=== PATIENT | female | born 1985 | race Caucasian/White ===

== ENCOUNTER 2018-08-07 00:40 | Inpatient (IN) ==
[2018-08-07] MEDS ORDERED: PENICILLIN G POTASSIUM 6 MU in DEXTROSE 5% 250 ML IV STA (01:24)
[2018-08-07] MEDS ORDERED: OXYTOCIN 30 UNITS/500 ML BAG IV PRN ×3 (01:24→12:08)
[2018-08-07] MEDS ORDERED: BUTORPHANOL TARTRATE 2 MG/ML VIAL IV ONE (01:27)
--- NOTE | 2018-08-07 01:36 | History & Physical Report ---
Date of Service August 07, 2018 Assessment & Plan (1) Amniotic fluid leaking: (2) Spontaneous rupture of amniotic membranes: 33 yo at 39.2 wks with SROM in early labor GBS+ FHR reassuring Borderline elevated BP, most likely with ctxs/ pain Plan to admit, monitor, labs, Stadol for pain now and then epidural Anticipate (3) GBS (group B Streptococcus carrier), +RV culture, currently : History of Present Illness Chief Complaint: Leaking Primary Care Provider: NO PCP Patient is a 33 yo at 39.2 wks who woke up at 11 pm last night with leaking of fluids She had a gush and then has been leaking clear fluids since then She started to have ctxs on the way here No VB +FM No fever/ chills/ CP/ SOB/ BYRD/ Change in vision Her has been uncomplicated except 1) GBS+ 2) h/o Juvenile RA, on remission 3) h/o labial HSV, genital?, on Valtrex and no symptoms Allergies Allergy/AdvReac Type Severity Reaction Status Date / Time naproxen Allergy Intermediate Unknown Verified 08/07/18 01:34 sulfasalazine Allergy Intermediate Unknown Verified 08/07/18 01:34 sulindac Allergy Intermediate Unknown Verified 08/07/18 01:35 Patient History Medical History Juvenile rheumatoid arthritis Social History Communication Ability: Effective marital status: Current Living Situation: Spouse current occupational status: employed Feels Safe at Home: No Smoking Status: Never smoker Hx Alcohol Use: No 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/ GC See HPI Review of Systems All systems reviewed & are unremarkable except as noted in HPI & below as per Subjective / HPI Physical Exam Constitutional: WD/WN, vitals as above well developed, well nourished and + in distress (with contractions only) Gastrointestinal (Abdomen): Abd: soft, NT, Gravid Genitourinary: no vaginal lesions, no adnexal mass normal external appearance VE; grossly leaking, Amnisure and Nitrazine+/+ Cervix: 2/ 80%/ -2, vertex, central Results & Data Vital Signs (Past 12 Hours) Vital Signs Pulse BP 08/07/18 01:25 104 H 169/105 H 08/07/18 01:24 109 H 185/100 H 08/07/18 01:19 93 H 148/97 H 08/07/18 01:15 100 H 141/88 H 08/07/18 01:09 96 H 141/92 H 08/07/18 01:05 96 H 139/91 08/07/18 00:58 88 142/99 H Monitoring External Monitor Categ I Tocodynamometer Ctxs q 2-5 min
[2018-08-07] MEDS: LACTATED RINGER'S 1,000 ML IV PRN ×2 (01:42→10:17)
[2018-08-07] MEDS ORDERED: fentaNYL citrate 100 MCG/2 ML VIAL ONE (01:56)
[2018-08-07] MEDS ORDERED: BUPIVACAINE 0.25% 30 ML VIAL ONE (01:56)
[2018-08-07] MEDS ORDERED: ePHEDrine sulfate 50 MG/ML AMP ONE (01:56)
[2018-08-07] MEDS ORDERED: fentaNYL 2MCG/ML ROPIV 1.25MG/ML 100 ML BAG EPI ONE (01:57)
[2018-08-07 02:00] LABS: Hematocrit (blood only) 35.9 % (37-47); Hemoglobin 12.1 g/dL (12.0-16.0); Mean Corpuscular Volume 86.3 fL (80-100); Mean Platelet Volume 9.6 fL (7.4-10.4); Platelet Count 326 K/uL (130-400); RDW Coefficient of Variation 13.7 % (11.5-14.5); RDW Standard Deviation 42.4 fL (36.4-46.3); Red Blood Count 4.16 M/uL (4.2-5.4); White Blood Count 9.93 K/uL (4.8-10.8)
[2018-08-07 02:01] LABS: Mean Corpuscular Hgb Conc 33.7 g/dL (32-36)
[2018-08-07] MEDS ORDERED: NALBUPHINE HCL INJ 10 MG/ML AMP IV PRN (02:08)
[2018-08-07] MEDS ORDERED: NALOXONE HCL 0.4 MG/1 ML VIAL/CARP IV PRN (02:08)
[2018-08-07] MEDS ORDERED: NALOXONE HCL 1 MG in SODIUM CHLORIDE 0.9% 1000ML 1,000 ML IV PRN (02:08)
[2018-08-07] MEDS ORDERED: fentaNYL 2MCG/ML ROPIV 1.25MG/ML 100 ML BAG EPI PRN (02:08)
[2018-08-07] MEDS ORDERED: ONDANSETRON INJ 2 MG/ML 2 ML VIAL IV PRN (02:08)
[2018-08-07] MEDS ORDERED: DiphenhydrAMINE HCL 50 MG/ML VIAL IV PRN (02:08)
[2018-08-07] MEDS ORDERED: ePHEDrine sulfate 50 MG/ML AMP IV PRN (02:08)
--- NOTE | 2018-08-07 02:14 | Anesthesiology Consultation ---
Date of Service August 07, 2018 Assessment & Plan (1) Encounter for pre-operative examination: Chart Review Chart Review: Patient NOT seen in Pre Admission Testing and Acceptable Risk for Labor Epidural Consults Requested none History Height/Weight Height: 5 ft 7 in Weight: 104.326 kg Allergies Allergy/AdvReac Type Severity Reaction Status Date / Time naproxen Allergy Intermediate Unknown Verified 08/07/18 01:34 sulfasalazine Allergy Intermediate Unknown Verified 08/07/18 01:34 sulindac Allergy Intermediate Unknown Verified 08/07/18 01:35 Medications Home Medications Medication Instructions Recorded Confirmed Last Taken PNV cmb#95-ferrous fumarate-FA 1 tab PO DAILY 08/07/18 08/07/18 07/30/18 [] cetirizine [Zyrtec] 10 mg PO DAILY 08/07/18 08/07/18 08/06/18 valacyclovir 500 mg PO DAILY 08/07/18 08/07/18 08/06/18 Active Medications Generic Name Dose Route Start Last Admin Trade Name Freq PRN Reason Stop Dose Admin Lactated Ringer's 1,000 mls @ 150 mls/hr 08/07/18 01:24 08/07/18 01:42 Lr IV 08/09/18 01:23 150 mls/hr .Q6H40M PRN Administration L&D Protocol Protocol Past Medical History Medical History Juvenile rheumatoid arthritis Exercise / Class Metabolic Activity II 4-5 Yardwork/Stairs/Walk up hill Past Surgical History wisdom teeth removal Past Anesthesia History No Hx of Anesthesia Complications and No Family Hx of Anesthesia Complications History of PONV No Hx of PONV and No Hx of Motion Sickness Social History Smoking Status: Never smoker Hx Alcohol Use: No Hx Substance Use: No Physical Exam Vital Signs Last Vital Signs Temp 36.8 C 08/07/18 00:56 Pulse 104 H 08/07/18 01:25 Resp 18 08/07/18 00:56 BP 169/105 H 08/07/18 01:25 Testing Laboratory Results 08/07/18 01:34 08/07/18 01:34
[2018-08-07 02:18] LABS: Albumin Level 2.5 gm/dl (3.4-5.0); BUN Creatinine Ratio 18.2 (10-20); Calcium 8.6 mg/dl (8.5-10.1); Creatinine Clr Calc Pharmacy 137.4 ml/min; Est GFR (African American) 126.3
[2018-08-07 02:20] LABS: Albumin Globulin Ratio 0.6 (0.9-2); Bilirubin,Total 0.1 mg/dl (0.2-1); Globulin 4.1 gm/dl (2.5-4.0); Total Protein 6.6 gm/dl (6.4-8.2)
[2018-08-07] MEDS: PENICILLIN G POTASSIUM 3 MU in DEXTROSE 5% 100 ML IV PRN ×2 (05:34→10:27)
[2018-08-07] MEDS ORDERED: ACETAMINOPHEN 325 MG TAB PO PRN (12:08)
[2018-08-07] MEDS ORDERED: BENZOCAINE 20% AER SPR 82.5 GM CAN EXT PRN (12:08)
[2018-08-07] MEDS ORDERED: SUPERCREAM 0.870% 15 GM JAR EXT PRN (12:08)
[2018-08-07] MEDS ORDERED: HYDROCORTISONE ACETATE 25 MG SUPP PR PRN (12:08)
[2018-08-07] MEDS ORDERED: MEASLES, MUMPS & RUBELLA VIRUS VIAL SQ ONE (12:08)
[2018-08-07] MEDS ORDERED: DIPHTHERIA/TETANUS/PERTUSSIS 0.5 ML SYR/VIAL IM ONE (12:08)
[2018-08-07] MEDS ORDERED: BISACODYL 10 MG SUPP PR PRN (12:08)
--- NOTE | 2018-08-07 12:15 | Procedure Note ---
Vaginal Delivery Summary Date of Service August 07, 2018 Vaginal Delivery Summary Delivery Note live female over intact perineum ROWDY with thick meconium at delivery with Apgars 6/8 weight pending. Cord blood obtained followed by cord blood collection and spontaneous delivery of intact placenta. Small perineal tear repaired with one 3/0 Vicryl suture. EBL 250 ml. Final sponge needle and instrument count are correct. Placenta for exam. Mom stable and baby to nursery for observation.
--- NOTE | 2018-08-07 12:41 | Anesthesia Procedure Note ---
Date of Service August 07, 2018 Anesthesia Post Epidural Note Vital Signs Vital Signs: Temp Pulse Resp BP Pulse Ox 37.1 C 95 H 20 143/83 H 96 08/07/18 10:57 08/07/18 12:36 08/07/18 12:06 08/07/18 12:36 08/07/18 11:40 Pain Intensity Abdomen: Pain Intensity: 0 Notes Mental Status: alert / awake / arousable and participated in evaluation Nausea / Vomiting: adequately controlled Pain: adequately controlled Airway Patency, RR, SpO2: stable & adequate BP & HR: stable & adequate Hydration State: stable & adequate Neuraxial Anesthesia: was administered and sensory block is resolving Anesthetic Complications: no major complications apparent and Pt Satisfied with anesthetic care Epidural: Removed without complications and With tip intact
[2018-08-07] MEDS: IBUPROFEN 600 MG TAB PO PRN ×3 (15:01→23:46)
[2018-08-07] MEDS: DOCUSATE SODIUM 100 MG CAP PO SCH (20:30)
[2018-08-08] MEDS: IBUPROFEN 600 MG TAB PO PRN ×4 (05:10→21:15)
[2018-08-08 07:18] LABS: Hematocrit (blood only) 30.7 % (37-47); Hemoglobin 10.2 g/dL (12.0-16.0); Mean Corpuscular Hgb Conc 33.2 g/dL (32-36); Mean Corpuscular Volume 86.5 fL (80-100); Mean Platelet Volume 8.8 fL (7.4-10.4); Platelet Count 243 K/uL (130-400); Red Blood Count 3.55 M/uL (4.2-5.4); White Blood Count 10.82 K/uL (4.8-10.8)
[2018-08-08] MEDS: DOCUSATE SODIUM 100 MG CAP PO SCH ×2 (08:59→21:15)
[2018-08-08] MEDS: FERROUS SULFATE 325 MG TAB PO SCH (08:59)
[2018-08-08] MEDS: PRENATAL VITAMIN 1 TAB PO SCH (08:59)
[2018-08-08] MEDS ORDERED: NON-FORMULARY MEDICATION (Pnv Cmb#95-Ferrous Fumarate-Fa [Prenatal] 1 TAB) PO SCH (09:00)
[2018-08-08] MEDS ORDERED: CETIRIZINE HCL 10 MG TABLET PO SCH (09:00)
--- NOTE | 2018-08-08 11:27 | Obstetrical Progress Note ---
Date of Service August 08, 2018 Assessment & Plan (1) normal course: PPD#1 Pt doing well anticipate disch tomorrow Subjective Ambulation: ambulating normally Voiding: no voiding problems Passing Gas:: Yes Diet Tolerance:: regular diet Lochia:: Small Feeding Type:: breast feeding Review of Systems All systems reviewed & are unremarkable except as noted in HPI & below Physical Exam Constitutional WD/WN, vitals as above well developed and well nourished Eyes PERRL, conjunctivae normal, anicteric sclerae Neck trachea midline, no thyromegaly Respiratory normal respiratory effort, lungs clear to auscultation Auscultation: no crackles, no rales and no wheezes Cardiovascular RRR, no murmur, no edema Gastrointestinal (Abdomen) normal bowel sounds, soft, nontender, no hepatosplenomegaly Uterus is below umbilicus Musculoskeletal no cyanosis or clubbing, extremities motor strength 5/5 Skin no rashes, warm and dry Neurologic patellar DTR's 2+ bilat, sensation intact Psychiatric A+Ox3, euthymic affect Genitourinary normal external appearance Results & Data Vital Signs (Past 12 Hours) Vital Signs Temp Pulse Resp BP Pulse Ox 08/08/18 07:15 36.6 C 85 18 110/68 08/08/18 05:00 36.6 C 78 20 110/68 97 08/08/18 00:00 36.6 C 72 20 120/80 97
[2018-08-08] MEDS ORDERED: BISACODYL 5 MG TABEC PO SCH (20:00)
[2018-08-09] MEDS: IBUPROFEN 600 MG TAB PO PRN (01:23)
[2018-08-09 06:45] LABS: Hematocrit (blood only) 31.1 % (37-47); Hemoglobin 10.3 g/dL (12.0-16.0)
--- NOTE | 2018-08-09 09:06 | Obstetrical Progress Note ---
Date of Service August 09, 2018 Subjective doing well tolerating diet ambulating well Physical Exam Constitutional: WD/WN, vitals as above comfortable abdomen soft non- tender neg edema neg Kristen's for d/c home Results & Data Vital Signs (Past 12 Hours) Vital Signs Temp Pulse Resp BP 08/09/18 00:00 36.6 C 97 H 18 129/81 Laboratory Results Laboratory Results - last 48 hr 08/08/18 08/09/18 07:07 06:23 WBC 10.82 H RBC 3.55 L Hgb 10.2 L 10.3 L Hct 30.7 L 31.1 L MCV 86.5 MCH 28.7 MCHC 33.2 RDW Std Deviation 44.0 RDW Coeff of Micheline 14.0 Plt Count 243 MPV 8.8
[2018-08-09] MEDS: DOCUSATE SODIUM 100 MG CAP PO SCH (09:13)
[2018-08-09] MEDS: FERROUS SULFATE 325 MG TAB PO SCH (09:13)
[2018-08-09] MEDS: PRENATAL VITAMIN 1 TAB PO SCH (09:13)
== END 2018-08-09 15:15 | disposition home or self-care (01) | DRG 807 ==
LOC: OPB 00:40 → 4S1 00:42 → 4S2 14:40

== ENCOUNTER 2020-01-09 07:11 | Inpatient (IN) ==
[2020-01-09] MEDS ORDERED: OXYTOCIN 30 UNITS/500 ML BAG IV PRN ×3 (07:56→15:17)
--- NOTE | 2020-01-09 08:37 | Progress Note ---
Date of Service January 09, 2020 Assessment & Plan Admission and Anticipated Discharge Date Admission Date: January 09, 2020 Subjective Met Pt and spouse Reviewed PNC with pt Induction for post dates FHR; CAT1 Ctx minimal VE 350/-2 + GBS Plan start Pitocin Antibx for GBS ordered Results & Data ([facility]) Vital Signs (Past 12 Hours) Vital Signs Temp Pulse Resp BP 01/09/20 07:32 37.2 C 97 H 16 141/79 H 01/09/20 07:23 37.2 C 97 H 16 141/79 H
[2020-01-09] MEDS ORDERED: PENICILLIN G POTASSIUM 3 MU in DEXTROSE 5% 100 ML IV PRN (08:40)
[2020-01-09] MEDS ORDERED: PENICILLIN G POTASSIUM 6 MU in DEXTROSE 5% 250 ML IV STA (08:40)
[2020-01-09] MEDS: LACTATED RINGER'S 1,000 ML IV PRN ×2 (09:11→13:13)
[2020-01-09 09:22] LABS: Alanine Aminotransferase 12 U/L (12-78); Albumin Level 2.5 gm/dl (3.4-5.0); Aspartate Aminotransferase 12 U/L (15-37); BUN Creatinine Ratio 20.9 (10-20); Blood Urea Nitrogen 14 mg/dl (7-18); Calcium 8.8 mg/dl (8.5-10.1); Carbon Dioxide 23 mmol/L (21-32); Chloride 108 mmol/L (98-107); Creatinine Clr Calc Pharmacy 145.4 ml/min; Est GFR (African American) 132.6; Est GFR (Non-African American) 114.4; Glucose 70 mg/dl (70-99); Potassium 4.2 mmol/L (3.5-5.1); Sodium 137 mmol/L (136-145)
[2020-01-09 09:26] LABS: Albumin Globulin Ratio 0.6 (0.9-2); Alkaline Phosphatase 118 U/L (45-117); Bilirubin,Total < 0.1 mg/dl (0.2-1); Globulin 4.4 gm/dl (2.5-4.0); Total Protein 6.9 gm/dl (6.4-8.2)
[2020-01-09] MEDS ORDERED: ACETAMINOPHEN 325 MG TAB PO PRN ×2 (10:40→15:17)
[2020-01-09] MEDS ORDERED: ACETAMINOPHEN 325 MG TAB ONE (10:50)
--- NOTE | 2020-01-09 12:46 | Progress Note ---
Date of Service January 09, 2020 Assessment & Plan Admission and Anticipated Discharge Date Admission Date: January 09, 2020 Subjective pt doing well On Pitocin Ctx 1-3min SROM- clear VE /-2 pt requesting epidural analgesia Results & Data ([facility]) Vital Signs (Past 12 Hours) Vital Signs Temp Pulse Resp BP 01/09/20 12:14 80 138/91 01/09/20 11:12 86 134/90 01/09/20 11:02 36.7 C 18 01/09/20 10:12 88 138/90 01/09/20 09:41 87 145/84 H 01/09/20 09:14 91 H 137/102 H 01/09/20 09:13 84 132/88 01/09/20 07:32 37.2 C 97 H 16 141/79 H 01/09/20 07:23 37.2 C 97 H 16 141/79 H
[2020-01-09] MEDS ORDERED: SODIUM CHLORIDE 0.9% INJ 10 ML VIAL ONE (12:50)
[2020-01-09] MEDS ORDERED: ePHEDrine sulfate 50 MG/ML AMP ONE (12:50)
[2020-01-09] MEDS ORDERED: fentaNYL citrate 100 MCG/2 ML VIAL ONE (12:50)
[2020-01-09] MEDS ORDERED: BUPIVACAINE 0.25% 30 ML VIAL ONE (12:50)
[2020-01-09] MEDS ORDERED: fentaNYL 2MCG/ML ROPIVACAINE 1.25MG/ML 100 ML BAG EPI ONE (12:51)
[2020-01-09] MEDS ORDERED: diphenhydrAMINE 50 MG/ML VIAL IV PRN (13:16)
[2020-01-09] MEDS ORDERED: PROMETHAZINE HCL 25 MG in SODIUM CHLORIDE 0.9% 50 ML IV PRN (13:16)
[2020-01-09] MEDS ORDERED: ePHEDrine sulfate 50 MG/ML AMP IV PRN (13:16)
[2020-01-09] MEDS ORDERED: NALOXONE HCL 1 MG in SODIUM CHLORIDE 0.9% 1000ML 1,000 ML IV PRN (13:16)
[2020-01-09] MEDS ORDERED: NALOXONE HCL 0.4 MG/1 ML VIAL/CARP IV PRN (13:16)
[2020-01-09] MEDS ORDERED: ONDANSETRON INJ 2 MG/ML 2 ML VIAL IV PRN (13:16)
[2020-01-09] MEDS ORDERED: fentaNYL 2MCG/ML ROPIVACAINE 1.25MG/ML 100 ML BAG EPI PRN (13:16)
--- NOTE | 2020-01-09 13:16 | Anesthesiology Consultation ---
Date of Service January 09, 2020 Assessment & Plan ASA ASA3 Proposed Anesthesia Anesthesia Type: Labor Epidural Risk / Benefits Reviewed With: PT / POA / Parent / Guardian, Accepts Plan and Informed Consent Obtained History Height/Weight Height: 5 ft 7 in Weight: 106.141 kg Allergies Allergy/AdvReac Type Severity Reaction Status Date / Time naproxen Allergy Intermediate Unknown Verified 01/09/20 07:36 sulfasalazine Allergy Intermediate Unknown Verified 01/09/20 07:36 sulindac Allergy Intermediate Unknown Verified 01/09/20 07:36 Medications Home Medications Medication Instructions Recorded Confirmed Last Taken PNV cmb#95-ferrous fumarate-FA 1 tab PO DAILY 08/07/18 01/09/20 01/08/20 21:00 [] Active Medications Generic Name Dose Route Start Last Admin Trade Name Freq PRN Reason Stop Dose Admin Lactated Ringer's 1,000 mls @ 125 mls/hr 01/09/20 07:56 01/09/20 13:13 Lr IV 01/11/20 07:55 125 mls/hr .Q8H PRN Administration L&D Protocol Protocol Oxytocin 30 units in 500 mls @ 8 mls/hr 01/09/20 08:40 01/09/20 11:45 Pitocin IV 01/11/20 08:39 0.48 units/hr .Q24H PRN 8 mls/hr Labor Induction/Augmentation Titration Protocol 0.48 UNITS/HR Penicillin G Potassium 3 mu/ 106 mls @ 100 mls/hr 01/09/20 08:40 01/09/20 13:03 Dextrose IV 01/19/20 08:39 100 mls/hr Q4H PRN Administration Give until delivery Past Medical History Medical History (Updated 01/09/20 @ 07:34 by Isabel Jaimes, VLADIMIR) Anxiety no meds IBS (irritable bowel syndrome) No meds Juvenile rheumatoid arthritis no meds Exercise / Class Metabolic Activity II 4-5 Yardwork/Stairs/Walk up hill Past Family History Family History Grandmother (Paternal) Breast cancer Grandfather (Maternal) Throat cancer Grandmother (Maternal) Heart disease Past Surgical History Surgical History H/O wisdom tooth extraction as a teenager Past Anesthesia History No Hx of Anesthesia Complications and No Family Hx of Anesthesia Complications History of PONV No Hx of PONV and No Hx of Motion Sickness Social History Smoking Status: Never smoker Hx Alcohol Use: No Hx Substance Use: No substance use type: does not use Review of Systems denies fever/cough/ colds/ chest pain/ SOB/ DARÍO denies DARÍO Physical Exam Vital Signs Last Vital Signs Temp 36.7 C 01/09/20 13:05 Pulse 70 01/09/20 14:25 Resp 18 01/09/20 14:00 BP 109/62 01/09/20 14:22 Pulse Ox 100 01/09/20 14:25 ENMT Mouth: no TMJ abnormality and no dentition abnormality Thyromental Distance: > or= 3.5 Finger Breadths Mallampati Class: II Neck neck extension not limited Respiratory normal respiratory effort; no respiratory distress Auscultation: lungs clear to auscultation bilaterally Cardiovascular Rate/Rhythm: regular rate and regular rhythm Neurologic moves all extremities Psychiatric Orientation: alert and oriented x 3 Testing Laboratory Results 01/09/20 08:08 01/09/20 08:50
[2020-01-09 13:28] LABS: Hemoglobin 12.4 g/dL (12.0-16.0); Mean Corpuscular Hemoglobin 28.8 pg (25-34); Mean Corpuscular Volume 88.4 fL (80-100); Mean Platelet Volume 9.5 fL (7.4-10.4); Platelet Count 332 K/uL (130-400); RDW Coefficient of Variation 13.8 % (11.5-14.5); RDW Standard Deviation 44.6 fL (36.4-46.3); White Blood Count 9.48 K/uL (4.8-10.8)
[2020-01-09 13:41] LABS: Mean Corpuscular Hgb Conc 32.6 g/dL (32-36)
[2020-01-09] MEDS ORDERED: miSOPROStoL 200 MCG TAB ONE (15:02)
[2020-01-09] MEDS ORDERED: LIDOCAINE HCL 1% 20 ML VIAL ONE (15:02)
[2020-01-09] MEDS ORDERED: METHYLERGONOVINE MALEATE 0.2 MG/ML AMP ONE (15:03)
[2020-01-09] MEDS ORDERED: BENZOCAINE 20% AER SPR 82.5 GM CAN EXT PRN (15:17)
[2020-01-09] MEDS ORDERED: HYDROCORTISONE ACETATE 25 MG SUPP PR PRN (15:17)
[2020-01-09] MEDS ORDERED: METHYLERGONOVINE MALEATE 0.2 MG/ML AMP IM ONE (15:17)
[2020-01-09] MEDS ORDERED: bisacodyL 10 MG SUPP PR PRN (15:17)
[2020-01-09] MEDS ORDERED: miSOPROStoL 200 MCG TAB PR ONE (15:17)
[2020-01-09] MEDS ORDERED: SUPERCREAM 0.870% 15 GM JAR EXT PRN (15:17)
[2020-01-09] MEDS ORDERED: DIPHTHERIA/TETANUS/PERTUSSIS 0.5 ML SYR/VIAL IM ONE (15:17)
--- NOTE | 2020-01-09 15:32 | Delivery Summary ---
DATE OF OPERATION: 01/09/2020 The patient delivered a live infant in occiput anterior presentation. There was no nuchal cord. Infant was delivered, placed on mother's abdomen. Delayed cord clamp was performed after 1 minute. Cord blood was obtained. Placenta spontaneously delivered. Inspection of the placenta shows normal looking placenta with 3-vessel cord. Inspection of the perineum shows a second-degree midline laceration which was repaired in layers with 2-0 and 3-0 Vicryl. Rectal exam post repair showed good sphincter tone. 's weight and is in the pediatric records. ESTIMATED BLOOD LOSS: 450 mL. Mother and baby are doing well in recovery. All instruments were removed from the vagina including sponges, needles and retractors and accounted for x2. I attest to the content of the Intraoperative Record and any orders documented therein. Any exception s are noted below.
--- NOTE | 2020-01-09 15:41 | Anesthesia Procedure Note ---
Date of Service January 09, 2020 Anesthesia Post Epidural Note Vital Signs Vital Signs: Temp Pulse Resp BP Pulse Ox 36.7 C 82 20 140/77 100 01/09/20 13:05 01/09/20 15:34 01/09/20 14:30 01/09/20 15:34 01/09/20 15:15 Pain Intensity Lower Abdomen: Pain Intensity: 3 Notes Mental Status: alert / awake / arousable and participated in evaluation Nausea / Vomiting: adequately controlled Pain: adequately controlled Airway Patency, RR, SpO2: stable & adequate BP & HR: stable & adequate Hydration State: stable & adequate Neuraxial Anesthesia: was administered and sensory block is resolving Anesthetic Complications: no major complications apparent and Pt Satisfied with anesthetic care Epidural: Removed without complications and With tip intact
[2020-01-09] MEDS ORDERED: BUTALBITAL/ASPIRIN/CAFFEINE 1 TAB TAB PO PRN (15:43)
[2020-01-09] MEDS: DOCUSATE SODIUM 100 MG CAP PO SCH (20:16)
[2020-01-09] MEDS: IBUPROFEN 600 MG TAB PO PRN (23:11)
[2020-01-10] MEDS: IBUPROFEN 600 MG TAB PO PRN ×3 (04:18→12:38)
[2020-01-10 06:15] LABS: Hematocrit (blood only) 35.7 % (37-47); Hemoglobin 11.8 g/dL (12.0-16.0); Mean Corpuscular Hemoglobin 29.4 pg (25-34); Mean Corpuscular Hgb Conc 33.1 g/dL (32-36); Mean Corpuscular Volume 88.8 fL (80-100); Mean Platelet Volume 9.2 fL (7.4-10.4); Platelet Count 248 K/uL (130-400); RDW Coefficient of Variation 13.8 % (11.5-14.5); Red Blood Count 4.02 M/uL (4.2-5.4); White Blood Count 9.31 K/uL (4.8-10.8)
[2020-01-10] MEDS ORDERED: FERROUS SULFATE 325 MG TAB PO SCH (08:00)
[2020-01-10] MEDS ORDERED: PRENATAL VITAMIN 1 TAB PO SCH (08:00)
[2020-01-10] MEDS: DOCUSATE SODIUM 100 MG CAP PO SCH (08:22)
--- NOTE | 2020-01-10 10:26 | Obstetrical Progress Note ---
Date of Service January 10, 2020 Assessment & Plan Admission and Anticipated Discharge Date Admission Date: January 09, 2020 Physical Exam Physical Exam: abdomen soft and non tender no calf tenderness ambulating well vaginal bleeding scant hgb 11.8 Results & Data ([facility]) Vital Signs (Past 12 Hours) Vital Signs Temp Pulse Resp BP Pulse Ox 01/10/20 04:15 36.4 C L 84 16 125/82 01/09/20 23:10 36.7 C 103 H 18 136/72 96
[2020-01-10 14:15] VITALS: BP 120/84; O2SAT 96
[2020-01-10 17:21] VITALS: PULSE 80; TEMP 97.9
[2020-01-10] MEDS ORDERED: bisacodyL 5 MG TABEC PO SCH (20:00)
== END 2020-01-10 17:12 | disposition home or self-care (01) | DRG 807 ==
LOC: 4S1 07:11 → 4S2 18:10